=== PATIENT | male | born 1940 | race Caucasian/White ===

== ENCOUNTER 2017-10-27 11:03 | Outpatient (CLI) | payer MEDICARE, BC ==
[2017-10-27 11:02] VITALS: BP 133/74
[~2017-10-27 11:03] MED LIST: CARCD120C PO; CEPH500C2 PO; DABI75CA3 PO; FLO0.4C PO; GLUC-133 PO; OMEG1CAP54 PO; ROSU20TA PO; VENL-191 PO; [UNRECOGNIZED DRUG - CODE] PO
== END 2017-10-27 12:00 | disposition home or self-care (01) ==
LOC: ORTHO 11:03
PROVIDERS: ATTEND Nurse Practitioner Family
DX: S61.412D Laceration without foreign body of left hand, subsequent encounter (principal); S66.922D Laceration of unspecified muscle, fascia and tendon at wrist and hand level, left hand, subsequent encounter; X58.XXXD Exposure to other specified factors, subsequent encounter
CPT/HCPCS: 99213; A6449